=== PATIENT | female | born 1990 | race Caucasian/White ===

== ENCOUNTER 2019-01-20 05:46 | Inpatient (IN) ==
--- NOTE | 2019-01-12 14:49 | PAT Medication Instructions ---
Medication Instructions Date of Service January 12, 2019 Home Medications Novolog Flexpen U-100 Insulin See Rx Instructions .ROUTE .COMPLEX levothyroxine 200 mcg PO QAM PNV cmb#95-ferrous fumarate-FA [] 1 tab PO DAILY insulin glargine U-300 conc [Toujeo SoloStar U-300 Insulin] 54 unit SUBCUT HS levothyroxine 50 mcg PO QAM DO NOT take the morning of surgery Novolog Flexpen U-100 Insulin See Rx Instructions .ROUTE .COMPLEX PNV cmb#95-ferrous fumarate-FA [] 1 tab PO DAILY Take morning of surgery With a small sip of water, OTHERWISE NOTHING TO EAT OR DRINK AFTER MIDNIGHT: levothyroxine 200 mcg PO QAM levothyroxine 50 mcg PO QAM Take evening before surgery Novolog Flexpen U-100 Insulin See Rx Instructions .ROUTE .COMPLEX insulin glargine U-300 conc [Toujeo SoloStar U-300 Insulin] 54 unit SUBCUT HS Other Notes If you have any questions please call us at [phone] or [phone] or [phone] or [phone]
--- NOTE | 2019-01-13 13:14 | Anesthesiology Consultation ---
Date of Service January 13, 2019 Assessment & Plan (1) Encounter for pre-operative examination: Chart Review Chart Review: Acceptable Risk for Surgery (pending labs) and Patient seen in Pre Admission Testing Teaching & Discussion Pre-Anesthesia Teaching/Discussion Notes: Instructed NPO after midnight before surgery,except medications with 15 cc of water. Medication instructions provided according to the PAT guidelines. History Surgery Operation Date: 01/20/19 07:30 Proposed Procedures p Section in LD - Shira Jiménez MD Height/Weight Height: 5 ft 5.5 in Weight: 90.8 kg Allergies Allergy/AdvReac Type Severity Reaction Status Date / Time amoxicillin Allergy Intermediate HIVES Verified 01/11/19 07:52 Sulfa (Sulfonamide Allergy Intermediate Hives Verified 01/11/19 07:52 Antibiotics) Medications Home Medications Medication Instructions Recorded Confirmed Last Taken Novolog Flexpen U-100 Insulin See Rx Instructions .ROUTE .COMPLEX 10/27/18 01/11/19 11/10/18 12:00 levothyroxine 200 mcg PO QAM 10/27/18 01/11/19 11/10/18 06:30 PNV cmb#95-ferrous fumarate-FA 1 tab PO DAILY 11/10/18 01/11/19 11/10/18 07:30 [] insulin glargine U-300 conc 54 unit SUBCUT HS 11/10/18 01/11/19 11/09/18 21:00 [Toujeo SoloStar U-300 Insulin] levothyroxine 50 mcg PO QAM 11/10/18 01/11/19 11/10/18 06:30 Past Medical History Medical History Anemia Anxiety GERD (gastroesophageal reflux disease) related Gestational diabetes on insulin H/O Alfredo thyroiditis History of basal cell cancer facial History of epidural anesthesia for prior vaginal delivery without issue Hypothyroid Exercise / Class Metabolic Activity II 4-5 Yardwork/Stairs/Walk up hill Past Family History Family History Other No significant family history Past Surgical History Surgical History History of dilation and curettage History of tooth extraction Past Anesthesia History No Hx of Anesthesia Complications and No Family Hx of Anesthesia Complications History of PONV No Hx of PONV and Hx of Motion Sickness (occasional) Social History Smoking Status: Never smoker Do You Dip or Chew Tobacco: No Hx Alcohol Use: No Hx Substance Use: No substance use type: does not use Review of Systems related reflux. Patient denies chest pain, shortness of breath, dyspnea on exertion, cough, wheezing, palpitations. Physical Exam Vital Signs VITALS BP 112/73 P 95 TEMP 98.4 SP02 97%RA RESP 16 PHYSICAL Full neck and c-spine range of motion. Full TMJ range of motion. TMD 3.5 finger breaths Mallampati Score 1 Dentition: missing molars Lungs: clear throughout to auscultation Cardiac: regular rate and rhythm, no murmurs noted Spine: normal Extremities: no edema
[2019-01-13 15:54] LABS: Basophils # (auto) 0.02 K/uL (0-0.2); Basophils % (auto) 0.2 %; Eosinophils # (auto) 0.04 K/uL (0-0.5); Eosinophils % (auto) 0.4 %; Hematocrit (blood only) 32.4 % (37-47); Hemoglobin 10.5 g/dL (12.0-16.0); Immature Granulocytes # (auto) 0.03 K/uL (0.00-0.02); Immature Granulocytes % (auto) 0.3 %; Lymphocytes # (auto) 1.12 K/uL (1.2-3.4); Lymphocytes % (auto) 10.5 %; Mean Corpuscular Hgb Conc 32.4 g/dL (32-36); Mean Corpuscular Volume 85.7 fL (80-100); Monocytes % (auto) 5.6 %; Neutrophils # (auto) 8.85 K/uL (1.4-6.5); Platelet Count 242 K/uL (130-400); RDW Coefficient of Variation 14.7 % (11.5-14.5); RDW Standard Deviation 46.2 fL (36.4-46.3); Red Blood Count 3.78 M/uL (4.2-5.4); White Blood Count 10.66 K/uL (4.8-10.8)
[2019-01-13 16:18] LABS: BUN Creatinine Ratio 16.7 (10-20); Calcium 8.8 mg/dl (8.5-10.1); Creatinine Clr Calc Pharmacy 146.8 ml/min; Est GFR (African American) 139.5; Est GFR (Non-African American) 120.4; Potassium 3.7 mmol/L (3.5-5.1)
--- OUTSIDE RECORDS SUMMARY | 2019-01-20 05:50 | External Medical Summary | Continuity of Care Document ---
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 , Viktor.DTyra Start: 03-Aug-2018 Refills: 0 Levothyroxine Sodium 175 MCG Oral Tablet ; TAKE 1 TABLET DAILY WITH A FULL GLASS OF WATER ON AN EMPTY STOMACH, WAIT 30 MINUTES TO EAT , M.DTyra S tart: 03-Aug-2018 Quantity: 30 Refills: 5 27-0.8 MG Oral Tablet; TAKE 1 TABLET DAILY DIREC NEEMA. Alan Start: 03-Aug-2018 Refills: 0 Multi Vitamin Oral Tablet; TAKE 1 TABLET DAILY. Alan Start: 03-Aug-2018 Refills: 0 Valtrex 500 MG Oral Tablet; TAKE 1 TABLET Twice daily PRN alan lea M.D. Start: 03-Aug-2018 Refills: 0 Procedures History of Dilation And Curettage Status : Completed Immunizations Immunizations not documented Family History Grandmother Family history of malignant neoplasm (V16.9) (Z80.9) Status: Active Family history of thyroid disease (V18.19) (Z83.49) Status: Active uncle Family history of malignant neoplasm (V16.9) (Z80.9) Status: Active Family history of thyroid disease (V18.19) (Z83.49) Status: Active Father Family history of cardiac disorder (V17.49) (Z82.49) Status: Active Social History - Smoking Status Never smoker Plan of Treatment Planned Observations Planned Goals not documented Results No Known Results Results not documented Encounters Appointment; Charity Estevez M.D. 11-Aug-2018 13:50 Encounter Diagnosis: Problem not documented
[2019-01-20] MEDS ORDERED: CEFAZOLIN 2,000 MG in SYRINGE 0 ML IV SCH (06:00)
[2019-01-20] MEDS ORDERED: CITRIC ACID/SODIUM CITRATE 15 ML UDC PO SCH (06:00)
[2019-01-20] MEDS ORDERED: LACTATED RINGER'S 1,000 ML IV SCH ×2 (06:00→09:30)
[2019-01-20 06:07] LABS: Basophils # (auto) 0.02 K/uL (0-0.2); Basophils % (auto) 0.2 %; Eosinophils # (auto) 0.06 K/uL (0-0.5); Eosinophils % (auto) 0.7 %; Hemoglobin 10.3 g/dL (12.0-16.0); Immature Granulocytes # (auto) 0.04 K/uL (0.00-0.02); Immature Granulocytes % (auto) 0.5 %; Mean Corpuscular Volume 82.2 fL (80-100); Mean Platelet Volume 9.6 fL (7.4-10.4); Monocytes # (auto) 0.53 K/uL (0.11-0.59); Monocytes % (auto) 6.4 %; Neutrophils # (auto) 6.67 K/uL (1.4-6.5); Neutrophils % (auto) 80.2 %; Platelet Count 224 K/uL (130-400); RDW Coefficient of Variation 14.7 % (11.5-14.5); RDW Standard Deviation 43.7 fL (36.4-46.3); Red Blood Count 3.77 M/uL (4.2-5.4); White Blood Count 8.32 K/uL (4.8-10.8)
[2019-01-20 06:12] LABS: Mean Corpuscular Hgb Conc 33.2 g/dL (32-36)
[2019-01-20] MEDS ORDERED: OXYTOCIN 10 UNITS/ML VIAL ONE (07:04)
[2019-01-20] MEDS ORDERED: ONDANSETRON INJ 2 MG/ML 2 ML VIAL ONE (07:04)
[2019-01-20] MEDS ORDERED: PHENYLEPHRINE 100MCG/ML 5ML SYR ONE (07:04)
[2019-01-20] MEDS ORDERED: MoRPHine SULFATE PF 1 MG/ML 10 ML AMP/VIAL ONE (07:04)
[2019-01-20] MEDS ORDERED: fentaNYL citrate 100 MCG/2 ML VIAL ONE (07:04)
--- NOTE | 2019-01-20 07:34 | History & Physical Bridge Note ---
Date of Service January 20, 2019 History & Physical Bridge Note I have examined the patient, reviewed the History & Physical and in the interval since the performance of the History & Physical I have noted the following changes of clinical significance: no changes noted Bed side US done: breech She decided to have tubal ligation/ sterilization after last visit in office. Discussed the risks , failure and alternatives in details We changed the consent to Primary Low Transverse Csection with Bilateral tubal ligation/ sterilization She signed informed consent All questions were answered
[2019-01-20] MEDS ORDERED: ePHEDrine sulfate 50 MG/ML AMP IV PRN (08:07)
[2019-01-20] MEDS ORDERED: MoRPHine SULFATE 2 MG/ML CARP IV PRN (08:07)
[2019-01-20] MEDS ORDERED: LACTATED RINGER'S 500 ML IV PRN (08:07)
[2019-01-20] MEDS ORDERED: MoRPHine SULFATE PF 1 MG/ML 10 ML AMP/VIAL INT SPINAL ONE (08:07)
[2019-01-20] MEDS ORDERED: MEPERIDINE HCL 25 MG/ML CARP IV PRN (08:07)
[2019-01-20] MEDS ORDERED: ONDANSETRON INJ 2 MG/ML 2 ML VIAL IV PRN (08:07)
[2019-01-20] MEDS ORDERED: NALOXONE HCL 0.4 MG/1 ML VIAL/CARP IV PRN (08:07)
[2019-01-20] MEDS ORDERED: NALOXONE HCL 1 MG in SODIUM CHLORIDE 0.9% 1000ML 1,000 ML IV PRN (08:07)
[2019-01-20] MEDS ORDERED: NALOXONE HCL 0.08 MG in SYRINGE 1.8 ML IV PRN (08:07)
[2019-01-20] MEDS ORDERED: DiphenhydrAMINE HCL 50 MG/ML VIAL IV PRN (08:07)
[2019-01-20] MEDS ORDERED: DC INTRASPINAL MORPHINE SCH (08:15)
[2019-01-20] MEDS ORDERED: SODIUM CHLORIDE 0.9% 1000ML 1,000 ML IV SCH (08:15)
[2019-01-20] MEDS ORDERED: NO NARCOTICS OR SEDATIVES SCH (08:15)
--- NOTE | 2019-01-20 09:17 | Post Operative Brief Note ---
Immediate Post Op Note v1 Date of Surgery January 20, 2019 Pre & Post Diagnosis Operation Date: 01/20/19 07:30 Pre-Op Diagnosis: Breech Presentation; Term . Desires permanent sterilization Post-Op Diagnosis: Same as above Procedure Operation Date: 01/20/19 07:30 Actual Procedures p Section and bilateral tubal sterilization in LD(Bilateral) - Shira Jiménez MD Surgeon Shira Jiménez MD Reducing Salon Attendant DAYAN Williamson Estimated Blood Loss 500 Findings Consistent with Post-Op Diagnosis Fluids 1500 ML Drains Schroeder Catheter (placed after spinal, draining clear urine) Anesthesia Type Spinal Complications none Disposition Accompanied Patient To Recovery: Yes Disposition: L&D Overlapping Procedure I was present for: the critical portions of procedure. (I WAS PRESENT FOR THE ENTIRE CASE)
--- NOTE | 2019-01-20 09:18 | Post Operative Brief Note ---
Immediate Post Op Note v1 Date of Surgery January 20, 2019 Pre & Post Diagnosis Operation Date: 01/20/19 07:30 Pre-Op Diagnosis: Breech Presentation; Term . Desires permanent sterilization Post-Op Diagnosis: Same as above Procedure Operation Date: 01/20/19 07:30 Actual Procedures p Section in LD(Bilateral) - Shira Jiménez MD Surgeon Shira Jiménez MD Engineer Soils DAYAN Williamson Estimated Blood Loss 500 Findings Consistent with Post-Op Diagnosis Drains Schroeder Catheter (placed after spinal, draining clear urine) Anesthesia Type Spinal Complications none Disposition Accompanied Patient To Recovery: Yes Disposition: L&D Overlapping Procedure I was present for: the critical portions of procedure. (I WAS PRESENT FOR THE ENTIRE CASE)
[2019-01-20] MEDS ORDERED: BENZOCAINE 20% AER SPR 82.5 GM CAN EXT PRN (09:23)
[2019-01-20] MEDS ORDERED: KETOROLAC 30 MG/ML VIAL IV PRN (09:23)
[2019-01-20] MEDS ORDERED: MAGNESIUM HYDROXIDE SUSP 30 ML UDC PO PRN (09:23)
[2019-01-20] MEDS ORDERED: DIPHTHERIA/TETANUS/PERTUSSIS 0.5 ML SYR/VIAL IM ONE (09:23)
[2019-01-20] MEDS ORDERED: SUPERCREAM 0.870% 15 GM JAR EXT PRN (09:23)
[2019-01-20] MEDS ORDERED: HYDROCORTISONE ACETATE 25 MG SUPP PR PRN (09:23)
[2019-01-20] MEDS ORDERED: SENNA 8.6 MG TAB PO PRN (09:23)
--- NOTE | 2019-01-20 09:31 | Anesthesiology Progress Note ---
Date of Service January 20, 2019 Anesthesia Post Procedure Vital Signs Vital Signs: Temp Pulse Resp BP Pulse Ox 01/20/19 09:30 74 100 01/20/19 09:25 98 H 131/60 99 01/20/19 07:36 37.1 C 91 H 20 132/69 01/20/19 05:54 99 H 128/71 01/20/19 05:50 36.9 C 99 H 18 128/71 Transfer of Care Handoff Completed per policy Notes Mental Status: alert / awake / arousable Patient Amnestic to Procedure: No Nausea / Vomiting: adequately controlled Pain: adequately controlled Airway Patency, RR, SpO2: stable & adequate BP & HR: stable & adequate Hydration State: stable & adequate Neuraxial Anesthesia: was administered and sensory block is resolving Anesthetic Complications: no major complications apparent and Pt Satisfied with anesthetic care
[2019-01-20] MEDS ORDERED: ARISTA ABSORBABLE HEMOSTAT 3GM TOP ONE (09:58)
[2019-01-20] MEDS ORDERED: OXYTOCIN 10 UNITS/ML VIAL IM ONE (09:58)
[2019-01-20] MEDS: NALBUPHINE HCL INJ 10 MG/ML AMP IV PRN ×2 (10:59→13:03)
[2019-01-20] MEDS: OXYTOCIN 20 UNITS in LACTATED RINGER'S 1,000 ML IV SCH ×2 (13:06→20:30)
[2019-01-20] MEDS: KETOROLAC 30 MG/ML VIAL IV PRN ×2 (13:19→20:45)
--- NOTE | 2019-01-20 19:23 | Operative Report ---
DATE OF OPERATION: 01/20/2019 PREOPERATIVE DIAGNOSIS: The patient is a 28-year-old G4, P2-0-1-2 at 39 weeks and 3 days of gestation Breech presentation at term, declines external cephalic version Multiparity, desires permanent sterilization, declines nonsurgical or reversible options. POSTOPERATIVE DIAGNOSIS: The patient is a 28-year-old G4, P2-0-1-2 at 39 weeks and 3 days of gestation Breech presentation at term, declines external cephalic version Multiparity, desires permanent sterilization, declines nonsurgical or reversible options. PROCEDURE: Primary low transverse with Pfannenstiel skin incision and delivery of a breech baby and bilateral tubal sterilization/ ligation with [place] method. SURGEON: Shira Jiménez MD. HELP DESK REP: DAYAN Williamson ESTIMATED BLOOD LOSS: 500 mL. ANESTHESIA: Spinal. ANESTHESIOLOGIST: Dr. Simpson. COMPLICATIONS: None. FLUIDS: 1500 mL of lactated ringer. DRAINS: Schroeder catheter drained 400 mL of urine. FINDINGS: Baby was a viable female infant delivered at 08:23 a.m. in [place] breech presentation Apgars were 9/9, weight was 4270 grams. MATERNAL FINDINGS: Normal uterus, fallopian tubes and ovaries. DESCRIPTION OF PROCEDURE: The patient was taken to the operating room where spinal anesthesia was given without difficulty. She was placed in dorsal supine position with a leftward tilt. She was prepared and draped in usual sterile fashion. A Pfannenstiel skin incision was made and carried through to the underlying layer of fascia with the Bovie. Fascia was incised in the midline and incision was extended laterally with the help of Hussein scissors. Lower and upper aspects of the fascial incision were then grasped with 2 Warner clamps, elevated, underlying rectus muscles were dissected off sharply with Hussein scissors and then rectus muscles were in the midline and peritoneum was identified, entered bluntly with fingers. Peritoneal incision was extended superiorly and inferiorly with good visualization of the bladder. Bladder blade was inserted. Vesicouterine peritoneum was identified, grasped with pickups, entered sharply with Metzenbaum scissors and bladder flap was created digitally and bladder blade was reinserted. Lower uterine segment was incised in transverse fashion, incision was extended laterally with the help of bandage scissors. Membranes were ruptured. Clear fluid was obtained. Baby's feet were at the incision. Feet and legs were delivered and then buttocks and then body and then arms in flexion position and then head without difficulty. Mouth and nose were suctioned. Cord was clamped x2 and cut at 1 minute delay and baby was handed to waiting utilization management manager. Placenta was delivered manually as intact and complete. Uterus was exteriorized, cleared of all clots and debris. Fundus was firm. Uterine incision was repaired with 0 Vicryl in a running locked fashion and a second imbricating layer was placed with a 2-0 Vicryl in a running locked fashion. Excellent hemostasis was achieved. Then, the right fallopian tube was identified, grasped with the Willem clamps and with 2-0 plain catgut mesosalpinx was entered from the avascular site and the tube was tied with a suture and then another tie was placed under the first tie making a loop of tube which was then excised about 3 cm long and sent to pathology. The base of the tube was hemostatic. Attention was turned to the left fallopian tube. It was held with [place] clamps and it was entered from the avascular site at the mesosalpinx, tube was tied and then another tie was placed under the first tie making a loop of fallopian tube. This was excised, about 3 cm long, and sent to pathology. The base of the tube was intact and hemostatic. Then uterine incision was checked to be again hemostatic. Uterus was returned to the abdomen. The pelvis was irrigated with warm normal saline and suctioned. Incision was hemostatic again and the fallopian tubes were inspected again in the abdomen and they were hemostatic. Parietal peritoneum was identified, grasped with Alexa clamps. It was reapproximated with 3-0 Vicryl in a running fashion and then the rectus muscles were reapproximated with the same suture in a running fashion. Then the fascia and muscles later were checked to be hemostatic. The fascia was reapproximated with 0 Vicryl in a running fashion and subcuticular fat tissue brought together with 3-0 Vicryl in a running fashion. Skin was closed in a subcuticular fashion with 4-0 Monocryl. The patient tolerated the procedure well. Sponge, lap and needle count was correct x3 and no complications happened. I was present during whole procedure. She received 2 grams of Cefazolin before surgery. She was taken to labor and delivery room in stable condition/ I attest to the content of the Intraoperative Record and any orders documented therein. Any exceptions are noted below. GIO
[2019-01-20] MEDS: SIMETHICONE 80 MG CHEW PO SCH ×2 (19:47→20:30)
[2019-01-20] MEDS: DOCUSATE SODIUM 100 MG CAP PO SCH (20:30)
[2019-01-21] MEDS ORDERED: ONDANSETRON INJ 2 MG/ML 2 ML VIAL IV PRN (02:08)
[2019-01-21] MEDS ORDERED: DiphenhydrAMINE HCL 50 MG/ML VIAL IV PRN (02:08)
[2019-01-21] MEDS ORDERED: PROMETHAZINE HCL 25 MG in SODIUM CHLORIDE 0.9% 50 ML IV PRN (02:08)
[2019-01-21] MEDS: OXYCODONE/ACETAMINOPHEN 5mg/325mg TAB PO PRN ×4 (03:57→21:48)
[2019-01-21] MEDS: IBUPROFEN 600 MG TAB PO PRN ×5 (03:57→21:49)
[2019-01-21] MEDS: LEVOTHYROXINE SODIUM 125 MCG TABLET PO SCH (06:07)
[2019-01-21 07:12] LABS: Basophils # (auto) 0.01 K/uL (0-0.2); Basophils % (auto) 0.1 %; Eosinophils # (auto) 0.01 K/uL (0-0.5); Eosinophils % (auto) 0.1 %; Hematocrit (blood only) 29.6 % (37-47); Hemoglobin 9.6 g/dL (12.0-16.0); Immature Granulocytes # (auto) 0.04 K/uL (0.00-0.02); Immature Granulocytes % (auto) 0.3 %; Lymphocytes # (auto) 0.83 K/uL (1.2-3.4); Lymphocytes % (auto) 7.2 %; Mean Corpuscular Hgb Conc 32.4 g/dL (32-36); Mean Corpuscular Volume 83.4 fL (80-100); Monocytes # (auto) 0.79 K/uL (0.11-0.59); Monocytes % (auto) 6.8 %; Neutrophils % (auto) 85.5 %; Platelet Count 231 K/uL (130-400); RDW Standard Deviation 45.6 fL (36.4-46.3); Red Blood Count 3.55 M/uL (4.2-5.4); White Blood Count 11.58 K/uL (4.8-10.8)
--- NOTE | 2019-01-21 08:38 | Anesthesiology Progress Note ---
Date of Service January 21, 2019 Anesthesia Post Procedure Vital Signs Vital Signs: Temp Pulse Pulse Resp BP BP Pulse Ox 01/21/19 08:11 36.9 C 77 18 110/72 100 01/21/19 03:20 36.9 C 88 18 107/68 98 01/21/19 02:10 16 100 01/21/19 01:30 19 100 01/21/19 00:30 16 98 01/21/19 00:10 36.8 C 74 18 103/64 99 01/20/19 23:13 36.8 C 76 18 102/60 99 01/20/19 21:45 16 98 01/20/19 20:45 18 99 01/20/19 20:00 37.2 C 86 18 118/60 99 01/20/19 19:30 18 99 01/20/19 18:30 18 100 01/20/19 17:30 18 100 01/20/19 16:35 36.8 C 80 18 121/73 100 01/20/19 15:35 80 18 116/69 100 01/20/19 14:35 36.7 C 80 18 129/76 100 01/20/19 14:25 91 H 96 01/20/19 14:23 36.8 C 16 01/20/19 14:22 76 118/58 L 01/20/19 14:20 73 97 01/20/19 14:19 80 119/58 L 01/20/19 14:15 81 98 01/20/19 14:10 83 99 01/20/19 14:05 76 98 01/20/19 14:04 80 122/59 L 01/20/19 14:00 83 98 01/20/19 13:55 78 97 01/20/19 13:50 86 98 01/20/19 13:49 88 111/59 L 01/20/19 13:45 89 97 01/20/19 13:40 78 97 01/20/19 13:35 68 97 01/20/19 13:34 70 98/54 L 01/20/19 13:30 67 96 01/20/19 13:29 68 94 01/20/19 13:25 71 98 01/20/19 13:20 76 99 01/20/19 13:19 69 110/57 L 01/20/19 13:15 87 99 01/20/19 13:10 68 97 01/20/19 13:05 73 98 01/20/19 13:04 76 121/57 L 01/20/19 13:00 84 98 01/20/19 12:55 82 99 01/20/19 12:50 69 98 01/20/19 12:49 81 113/55 L 01/20/19 12:45 71 96 01/20/19 12:40 68 96 01/20/19 12:35 81 121/58 L 98 01/20/19 12:30 74 98 01/20/19 12:25 77 99 01/20/19 12:20 78 99 01/20/19 12:19 131/62 01/20/19 12:16 91 H 89 L 01/20/19 12:15 87 100 01/20/19 12:10 83 98 01/20/19 12:08 94 H 93 01/20/19 12:05 79 132/57 L 99 01/20/19 12:00 89 99 01/20/19 11:55 76 100 01/20/19 11:50 72 98 01/20/19 11:49 80 124/61 01/20/19 11:45 70 97 01/20/19 11:40 72 97 01/20/19 11:35 71 98 01/20/19 11:34 71 121/58 L 01/20/19 11:30 70 97 01/20/19 11:25 70 97 01/20/19 11:20 69 97 01/20/19 11:19 69 114/59 L 01/20/19 11:15 68 97 01/20/19 11:10 83 100 01/20/19 11:08 36.8 C 16 01/20/19 11:05 103 H 99 01/20/19 11:04 107 H 108/63 01/20/19 11:00 72 99 01/20/19 10:55 69 98 01/20/19 10:50 78 100 01/20/19 10:49 82 113/62 01/20/19 10:45 82 100 01/20/19 10:40 85 99 01/20/19 10:35 89 96 01/20/19 10:33 84 111/55 L 01/20/19 10:30 67 100 01/20/19 10:25 66 100 01/20/19 10:23 65 113/57 L 01/20/19 10:20 67 100 01/20/19 10:15 83 94 01/20/19 10:13 85 119/66 01/20/19 10:10 79 100 01/20/19 10:08 71 110/58 L 01/20/19 10:05 73 100 01/20/19 10:03 80 104/57 L 01/20/19 10:01 77 113/59 L 01/20/19 10:00 81 100 01/20/19 09:55 83 100 01/20/19 09:54 81 123/58 L 91 01/20/19 09:50 91 H 100 01/20/19 09:48 95 H 125/57 L 01/20/19 09:45 81 87 L 01/20/19 09:43 68 117/58 L 01/20/19 09:42 36.8 C 18 01/20/19 09:40 71 100 01/20/19 09:38 66 111/56 L 01/20/19 09:35 71 98 01/20/19 09:33 72 120/60 01/20/19 09:30 74 100 01/20/19 09:25 98 H 131/60 99 Pain Intensity Abdomen: Pain Intensity: 2 Transfer of Care Handoff Completed per policy Notes Mental Status: alert / awake / arousable Patient Amnestic to Procedure: Yes Nausea / Vomiting: adequately controlled Pain: adequately controlled Airway Patency, RR, SpO2: stable & adequate BP & HR: stable & adequate Hydration State: stable & adequate Neuraxial Anesthesia: was administered and sensory block resolved Anesthetic Complications: no major complications apparent and Pt Satisfied with anesthetic care
[2019-01-21] MEDS: PRENATAL VITAMIN 1 TAB PO SCH (08:41)
[2019-01-21] MEDS: SIMETHICONE 80 MG CHEW PO SCH ×4 (08:41→20:43)
[2019-01-21] MEDS: FERROUS SULFATE 325 MG TAB PO SCH (08:41)
[2019-01-21] MEDS: DOCUSATE SODIUM 100 MG CAP PO SCH ×2 (08:41→20:43)
--- NOTE | 2019-01-21 10:06 | Surgery Progress Note ---
Date of Service January 21, 2019 Subjective doing well passing gas tolerating diet Physical Exam Constitutional: WD/WN, vitals as above comfortable abdomen soft and non- tender dressing removed incision clean dry and intact no edema neg Tahira's will increase diet and activity Results & Data Vital Signs (Past 12 Hours) Vital Signs Temp Pulse Pulse Resp BP BP Pulse Ox 01/21/19 08:11 36.9 C 77 18 110/72 100 01/21/19 03:20 36.9 C 88 18 107/68 98 01/21/19 02:10 16 100 01/21/19 01:30 19 100 01/21/19 00:30 16 98 01/21/19 00:10 36.8 C 74 18 103/64 99 01/20/19 23:13 36.8 C 76 18 102/60 99 Laboratory Results Vital Signs Temp Pulse Pulse Resp BP BP Pulse Ox 01/21/19 08:11 36.9 C 77 18 110/72 100 01/21/19 03:20 36.9 C 88 18 107/68 98 01/21/19 02:10 16 100 01/21/19 01:30 19 100 01/21/19 00:30 16 98 01/21/19 00:10 36.8 C 74 18 103/64 99 01/20/19 23:13 36.8 C 76 18 102/60 99 01/20/19 21:45 16 98 01/20/19 20:45 18 99 01/20/19 20:00 37.2 C 86 18 118/60 99 01/20/19 19:30 18 99 01/20/19 18:30 18 100 01/20/19 17:30 18 100 01/20/19 16:35 36.8 C 80 18 121/73 100 01/20/19 15:35 80 18 116/69 100 01/20/19 14:35 36.7 C 80 18 129/76 100 01/20/19 14:25 91 H 96 01/20/19 14:23 36.8 C 16 01/20/19 14:22 76 118/58 L 01/20/19 14:20 73 97 01/20/19 14:19 80 119/58 L 01/20/19 14:15 81 98 01/20/19 14:10 83 99 01/20/19 14:05 76 98 01/20/19 14:04 80 122/59 L 01/20/19 14:00 83 98 01/20/19 13:55 78 97 01/20/19 13:50 86 98 01/20/19 13:49 88 111/59 L 01/20/19 13:45 89 97 01/20/19 13:40 78 97 01/20/19 13:35 68 97 01/20/19 13:34 70 98/54 L 01/20/19 13:30 67 96 01/20/19 13:29 68 94 01/20/19 13:25 71 98 01/20/19 13:20 76 99 01/20/19 13:19 69 110/57 L 01/20/19 13:15 87 99 01/20/19 13:10 68 97 01/20/19 13:05 73 98 01/20/19 13:04 76 121/57 L 01/20/19 13:00 84 98 01/20/19 12:55 82 99 01/20/19 12:50 69 98 01/20/19 12:49 81 113/55 L 01/20/19 12:45 71 96 01/20/19 12:40 68 96 01/20/19 12:35 81 121/58 L 98 01/20/19 12:30 74 98 01/20/19 12:25 77 99 01/20/19 12:20 78 99 01/20/19 12:19 131/62 01/20/19 12:16 91 H 89 L 01/20/19 12:15 87 100 01/20/19 12:10 83 98 01/20/19 12:08 94 H 93 01/20/19 12:05 79 132/57 L 99 01/20/19 12:00 89 99 01/20/19 11:55 76 100 01/20/19 11:50 72 98 01/20/19 11:49 80 124/61 01/20/19 11:45 70 97 01/20/19 11:40 72 97 01/20/19 11:35 71 98 01/20/19 11:34 71 121/58 L 01/20/19 11:30 70 97 01/20/19 11:25 70 97 01/20/19 11:20 69 97 01/20/19 11:19 69 114/59 L 01/20/19 11:15 68 97 01/20/19 11:10 83 100 01/20/19 11:08 36.8 C 16 01/20/19 11:05 103 H 99 01/20/19 11:04 107 H 108/63 01/20/19 11:00 72 99 01/20/19 10:55 69 98 01/20/19 10:50 78 100 01/20/19 10:49 82 113/62 01/20/19 10:45 82 100 01/20/19 10:40 85 99 01/20/19 10:35 89 96 01/20/19 10:33 84 111/55 L 01/20/19 10:30 67 100 01/20/19 10:25 66 100 01/20/19 10:23 65 113/57 L 01/20/19 10:20 67 100 01/20/19 10:15 83 94 01/20/19 10:13 85 119/66 01/20/19 10:10 79 100 01/20/19 10:08 71 110/58 L Intake and Output 01/20/19 01/21/19 01/21/19 22:59 06:59 14:59 Intake Total 2190.583 / 4194.750 504.167 / 4194.750 Output Total 450 / 2224 112 / 2224 Balance 1740.583 / 1969.750 -620.833 / 1969.750 Intake: IV 1190.583 / 1694.750 504.167 / 1694.750 Pitocin 20 Units In Lr 1,000 ml 1139.583 / 1643.750 504.167 / 1643.750 @ 125 mls/hr IV .Q8H1M THEODORA Rx# :[id number] Phenergan 25 mg In Nss 50 ml @ 51 / 51 204 mls/hr IV Q4H PRN Rx#: [id number] Oral 1000 / 1000 Output: Urine Amount (Catheter) 450 / 2225 1125 / 2225 Schroeder/Indwelling 450 / 2224 1125 / 2225 Diagnostic Findings Laboratory Results - last 48 hr 01/20/19 01/21/19 05:53 06:45 WBC 8.32 11.58 H RBC 3.77 L 3.55 L Hgb 10.3 L 9.6 L Hct 31.0 L 29.6 L MCV 82.2 83.4 MCH 27.3 27.0 MCHC 33.2 32.4 RDW Std Deviation 43.7 45.6 RDW Coeff of Maryann 14.7 H 15.0 H Plt Count 224 231 MPV 9.6 10.0 Immature Gran % (Auto) 0.5 0.3 Neut % (Auto) 80.2 85.5 Lymph % (Auto) 12.0 7.2 [place] % (Auto) 6.4 6.8 Eos % (Auto) 0.7 0.1 Baso % (Auto) 0.2 0.1 Immature Gran # (Auto) 0.04 H 0.04 H Neut # (Auto) 6.67 H 9.90 H Lymph # (Auto) 1.00 L 0.83 L [place] # (Auto) 0.53 0.79 H Eos # (Auto) 0.06 0.01 Baso # (Auto) 0.02 0.01
[2019-01-21] MEDS ORDERED: BISACODYL 5 MG TABEC PO SCH (20:00)
[2019-01-22] MEDS: OXYCODONE/ACETAMINOPHEN 5mg/325mg TAB PO PRN ×2 (07:08→12:18)
[2019-01-22] MEDS: IBUPROFEN 600 MG TAB PO PRN ×2 (07:08→12:18)
[2019-01-22 07:34] LABS: Hematocrit (blood only) 28.2 % (37-47); Hemoglobin 9.1 g/dL (12.0-16.0)
[2019-01-22] MEDS: LEVOTHYROXINE SODIUM 125 MCG TABLET PO SCH (07:53)
[2019-01-22] MEDS ORDERED: BISACODYL 10 MG SUPP PR PRN (09:23)
[2019-01-22] MEDS: SIMETHICONE 80 MG CHEW PO SCH (09:41)
[2019-01-22] MEDS: DOCUSATE SODIUM 100 MG CAP PO SCH (09:41)
[2019-01-22] MEDS: FERROUS SULFATE 325 MG TAB PO SCH (09:41)
[2019-01-22] MEDS: PRENATAL VITAMIN 1 TAB PO SCH (09:42)
--- NOTE | 2019-01-22 11:05 | Obstetrical Progress Note ---
Date of Service January 22, 2019 Assessment & Plan (1) delivery delivered: c/sec day #3 pt doing well d/c home with instructions Subjective Ambulation: ambulating normally Voiding: no voiding problems Passing Gas:: Yes Diet Tolerance:: clear liquids Lochia:: Small Feeding Type:: breast feeding Review of Systems All systems reviewed & are unremarkable except as noted in HPI & below Physical Exam Constitutional WD/WN, vitals as above well developed and well nourished Eyes PERRL, conjunctivae normal, anicteric sclerae ENMT external ear and nose normal, oropharynx normal Neck trachea midline, no thyromegaly Respiratory normal respiratory effort, lungs clear to auscultation Cardiovascular RRR, no murmur, no edema Chest (Breasts) normal inspection/palpation of breasts Gastrointestinal (Abdomen) normal bowel sounds, soft, nontender, no hepatosplenomegaly Musculoskeletal no cyanosis or clubbing, extremities motor strength 5/5 Skin no rashes, warm and dry + incision (Clean,dry and intact) Neurologic patellar DTR's 2+ bilat, sensation intact Psychiatric A+Ox3, euthymic affect Genitourinary normal external appearance Lymphatic no cervical or axillary lymphadenopathy Results & Data Vital Signs (Past 12 Hours) Vital Signs Temp Pulse Resp BP Pulse Ox Pulse Ox 01/22/19 07:55 36.7 C 85 20 116/69 100 100 01/22/19 00:47 36.8 C 79 16 110/68 100
--- NOTE | 2019-01-25 03:50 | Discharge Summary ---
DETAILS OF ADMISSION: Patient is a 28-year-old G4, P2-0-1-2 at 39 weeks and 3 days of gestation. She was scheduled for a primary for breech presentation and bilateral tubal ligation. She had the above surgery on 01/20/2019 as scheduled and she delivered a viable female infant at 8:23 a.m. in [place] breech presentation, Apgars were 9/9, weight was 4270 grams. Her surgery was uncomplicated. See dictated op note for details. On postoperative period, patient was doing well. Vital signs stable and afebrile. Urine output was good. On postop day #1, the patient was doing well. Vital signs stable and afebrile. Her dressing was removed. The incision was clean, dry and intact. Extremities, nontender, no edema. She was advanced to regular diet, ambulated. Her H and H was 9.6/29.6. She was monitored. On postoperative day #2, the patient was doing well. Vital signs stable and afebrile, ambulating. Tolerating a regular diet, passing gas, . Her bleeding was minimal. Her physical exam was unremarkable. Incision was clean, dry and intact. Extremities nontender. Fundus was firm. Bleeding was minimal. Her vital signs were stable and her repeat H and H was 9.1/28.2. On postop day #2, the patient desired to be discharged. Discharge instructions were given. Prescriptions were written for pain. She is to be seen in the office in a week for incision check.
== END 2019-01-22 13:40 | disposition home or self-care (01) | DRG 785 ==
LOC: 4S1 05:46 → EDSTATUS 07:30 → 4S2 14:34
PROC: M.PPTLD (2019-01-20 07:30)